=== PATIENT | male | born 1950 | race Caucasian/White ===

== ENCOUNTER → 2016-03-11 | Outpatient (CLI) | payer MEDICARE, BC ==
[~2016-03-11] MED LIST: ALLOPURINOL100 MG PO; FISH OIL 1,0001 EAC7 PO; LISINOPRIL5 MG PO; MULTIVITAMIN1 EAC2 PO; PROMETHAZINE HC25 M1 PO; TYLENOL WITH C1 EACH PO; VITAMIN C500 M1 PO
== END | disposition home or self-care (01) ==
LOC: CDC 10:39
DX: R94.31 Abnormal electrocardiogram [ECG] [EKG] (principal); R00.1 Bradycardia, unspecified; I44.0 Atrioventricular block, first degree
CPT/HCPCS: 93000